=== PATIENT | female | born 1985 | race Caucasian/White ===

== ENCOUNTER 2022-01-27 15:29 | Inpatient (IN) ==
[2022-01-27 15:33] VITALS: BMI 32.8
[2022-01-27] MEDS ORDERED: LR 1,000 ML IV 1,000 ML IV ONE ×2 (15:47→18:38)
[2022-01-27 16:10] LABS: AMNISURE ROM TEST THERE IS A RUPTURE (NO RUPTURE)
[2022-01-27 16:27] LABS: BASOPHILS # (AUTO) 0.1 X10^3/uL (0.0-0.1); BASOPHILS % (AUTO) 0.6 % (0.2-1.0); EOSINOPHILS # (AUTO) 0.1 x10^3/uL (0.0-0.2); EOSINOPHILS % (AUTO) 0.8 % (0.9-2.9); HEMATOCRIT 32.5 % (36.0-47.0); LYMPHOCYTES % (AUTO) 20.6 % (21.0-51.0); MEAN CORPUSCULAR HEMOGLOBIN 25.8 pg (27.0-34.0); MEAN CORPUSCULAR HGB CONC 33.8 g/dL (33.0-35.0); MEAN CORPUSCULAR VOLUME 76.2 fL (80.0-100.0); MEAN PLATELET VOLUME 10.2 fL (7.4-11.0); MONOCYTES # (AUTO) 0.8 x10^3/uL (0.3-0.8); MONOCYTES % (AUTO) 7.9 % (0.0-13.0); NEUTROPHILS # (AUTO) 6.7 x10^3/uL (2.2-4.8); NEUTROPHILS % (AUTO) 70.1 % (42.0-75.0); RED BLOOD COUNT 4.26 X10^6/uL (3.5-5.4); RED CELL DISTRIBUTION WIDTH 14.5 % (11.6-16.5); WHITE BLOOD COUNT 9.6 X10^3/uL (3.6-10.0)
[2022-01-27] MEDS ORDERED: ANCEF VIAL 1 GRAM ONE (16:27)
[2022-01-27] MEDS ORDERED: NS 100 ML IV 100 ML ONE (16:27)
[2022-01-27 16:43] LABS: ALANINE AMINOTRANSFERASE 9 Units/L (12-78); ALBUMIN 2.6 g/dL (3.4-5.0); ALKALINE PHOSPHATASE 222 Units/L (46-116); ASPARTATE AMINO TRANSFERASE < 6 Units/L (15-37); BLOOD UREA NITROGEN 10 mg/dL (7-18); CARBON DIOXIDE 23.3 mmol/L (21-32); CHLORIDE 102 mmol/L (98-107); COR CA(FOR HYPOALB) 9.1 mg/dL (8.5-10.1); CREATININE 0.73 mg/dL (0.55-1.02); SODIUM 134 mmol/L (136-145); TOTAL PROTEIN 6.7 g/dL (6.4-8.2); eGFR NON BLACK RACES > 60 (>60)
[2022-01-27] MEDS ORDERED: BICITRA 30 ML PO ONE (17:44)
[2022-01-27] MEDS ORDERED: MARCAINE SPINAL ONE (17:49)
[2022-01-27] MEDS ORDERED: DILAUDID INJ ONE (17:49)
[2022-01-27] MEDS ORDERED: VERSED ONE (17:49)
[2022-01-27] MEDS ORDERED: XYLOCAINE 2 % (PLAIN) ONE (17:50)
[2022-01-27] MEDS ORDERED: ZOFRAN INJ 4 MG VIAL IVP PRN ×2 (17:53→22:55)
[2022-01-27] MEDS ORDERED: REGLAN INJ 10 MG VIAL IVP PRN ×2 (17:53→22:55)
[2022-01-27] MEDS ORDERED: DILAUDID INJ IVP PRN (17:53)
[2022-01-27] MEDS ORDERED: BARHEMSYS INJ IVP PRN (17:53)
[2022-01-27] MEDS ORDERED: BENADRYL INJ 50 MG VIAL IVP PRN ×2 (17:53→22:55)
[2022-01-27] MEDS ORDERED: PHENERGAN INJ 25 MG IM PRN (17:53)
[2022-01-27] MEDS ORDERED: EPHEDRINE SULFATE INJ ONE (18:15)
[2022-01-27] MEDS ORDERED: PITOCIN ONE (18:40)
[2022-01-27] MEDS ORDERED: BENADRYL INJ 50 MG VIAL ONE (20:11)
[2022-01-27] MEDS ORDERED: BETADINE SOLN ONE (22:52)
[2022-01-27] MEDS ORDERED: D5 1/2 NS 1,000 ML 1,000 ML with PITOCIN 20 UNITS IV SCH ×2 (22:55)
[2022-01-27] MEDS ORDERED: NARCAN INJ IVP PRN (22:55)
[2022-01-27] MEDS ORDERED: ADACEL or BOOSTRIX TDaP VACCINE IM ONE (22:55)
[2022-01-27] MEDS ORDERED: HYPERRHO S/D (or RHOGAM) IM PRN (22:55)
[2022-01-27] MEDS ORDERED: PERCOCET TAB 5/325 MG PO PRN (22:55)
[2022-01-27] MEDS ORDERED: TORADOL 30 MG VIAL IVP PRN (22:55)
[2022-01-27] MEDS: MYLICON TAB 80 MG CHEW PO PRN (23:31)
[2022-01-28 05:17] LABS: HEMATOCRIT 27.8 % (36.0-47.0)
[2022-01-28 05:18] LABS: HEMOGLOBIN 9.2 g/dL (12.0-16.0)
[2022-01-28] MEDS: MYLICON TAB 80 MG CHEW PO PRN ×2 (05:27→21:46)
[2022-01-28] MEDS ORDERED: PERCOCET TAB 5/325 MG PO PRN (05:57)
[2022-01-28] MEDS: BACTROBAN TOPICAL OINT TOP SCH ×3 (06:20→21:50)
[2022-01-28] MEDS: PRENATAL PLUS PO SCH (09:51)
[2022-01-28] MEDS: COLACE CAP 100 MG PO SCH ×2 (09:51→21:46)
[2022-01-28] MEDS: WELLBUTRIN XL 150 MG (DAILY) PO SCH (09:52)
[2022-01-28] MEDS: NexIUM PO SCH (09:52)
[2022-01-28] MEDS: MOTRIN TAB 800 MG PO PRN ×3 (09:56→21:49)
[2022-01-29] MEDS: BACTROBAN TOPICAL OINT TOP SCH (05:50)
[2022-01-29] MEDS: PRENATAL PLUS PO SCH (08:11)
[2022-01-29] MEDS: NexIUM PO SCH (08:11)
[2022-01-29] MEDS: WELLBUTRIN XL 150 MG (DAILY) PO SCH (08:11)
[2022-01-29] MEDS: COLACE CAP 100 MG PO SCH (08:11)
[2022-01-29 12:13] VITALS: BP 133/83
== END 2022-01-29 12:30 | disposition home or self-care (01) | DRG 784 ==
LOC: ER 15:29 → LD 15:57 → MED/SURG 20:42
PROVIDERS: ADMIT Specialist; ATTEND Specialist
DX: O13.3 Gestational [pregnancy-induced] hypertension without significant proteinuria, third trimester; O98.82 Other maternal infectious and parasitic diseases complicating childbirth; O34.211 Maternal care for low transverse scar from previous cesarean delivery; B95.1 Streptococcus, group B, as the cause of diseases classified elsewhere; Z3A.37 37 weeks gestation of pregnancy; Z37.0 Single live birth; N85.8 Other specified noninflammatory disorders of uterus; O99.613 Diseases of the digestive system complicating pregnancy, third trimester; Z30.2 Encounter for sterilization; Z20.822 Contact with and (suspected) exposure to COVID-19